=== PATIENT | male | born 1995 | race Caucasian/White ===

== ENCOUNTER 2022-11-05 08:26 | Emergency (ER) | payer OTHER ==
[~2022-11-05] VITALS: Ht 160 cm; Wt 113.4 kg
[2022-11-05] MEDS ORDERED: IBUPROFEN 600 MG TABLET ONE (08:45)
[2022-11-05] MEDS ORDERED: IBUPROFEN 400 MG TABLET PO ONE (09:00)
[2022-11-05 10:43] VITALS: BP 141/85; TEMP 99.1; O2SAT 98
== END 2022-11-05 10:43 ==
LOC: ER 08:30
DX: R07.89 Other chest pain (principal); F20.9 Schizophrenia, unspecified; Z88.1 Allergy status to other antibiotic agents
CPT/HCPCS: 71045-TC

== ENCOUNTER 2022-11-17 17:04 | Emergency (ER) | payer OTHER ==
[~2022-11-17] VITALS: Ht 170.2 cm; Wt 117.9 kg
[2022-11-17] MEDS ORDERED: IV NS 0.9% 1,000 ML IV ONE (19:00)
[2022-11-17 19:15] LABS: APPEARANCE,URINE CLEAR (CLEAR); BILIRUBIN,URINE NEGATIVE (NEGATIVE); BLOOD, URINE NEGATIVE Ery/uL (NEGATIVE); COLOR,URINE YELLOW (YELLOW); KETONES,URINE NEGATIVE (NEGATIVE); LEUKOCYTE ESTERASE ,URINE NEGATIVE (NEGATIVE); NITRITE, URINE NEGATIVE (NEGATIVE); PROTEIN,URINE NEGATIVE (NEGATIVE); UGLUCOSE NEGATIVE (NEGATIVE); UROBILINOGEN,URINE 0.2 EU/dL (0.2)
[2022-11-17 19:24] LABS: BASOPHILS # (AUTO) 0.4 K/uL (0.0-0.2); BASOPHILS % (AUTO) 3.2 % (0.0-2.0); EOSINOPHILS # (AUTO) 0.1 K/uL (0.0-0.7); EOSINOPHILS % (AUTO) 0.8 % (0.0-6.0); HEMATOCRIT 45 % (39-51); HEMOGLOBIN 14.6 g/dL (13.5-17.5); LYMPHOCYTES # (AUTO) 2.6 K/uL (0.8-4.8); LYMPHOCYTES % (AUTO) 22.3 % (20.0-44.0); MEAN CORPUSCULAR HEMOGLOBIN 27 PG (26.0-33.0); MEAN CORPUSCULAR HGB CONC 33 g/dl (31.0-36.0); MEAN CORPUSCULAR VOLUME 82 fL (80-96); MONOCYTES # (AUTO) 0.6 K/uL (0.1-1.30); MONOCYTES % (AUTO) 5.2 % (2.0-12.0); NEUTROPHILS # (AUTO) 8.1 K/uL (1.8-8.9); NEUTROPHILS % (AUTO) 68.5 % (43.0-81.0); PLATELET COUNT (AUTO) 262 K/uL (150-450); RED BLOOD CELL COUNT(AUTO) 5.46 MIL/uL (4.5-6.0); RED CELL DISTRIBUTION WIDTH 14.2 % (11.5-15.0); WHITE BLOOD COUNT (AUTO) 11.9 K/uL (4.3-11.0)
[2022-11-17 19:28] LABS: AMPHETAMINE, URINE NEGATIVE (NEGATIVE); BARBITURATE, URINE NEGATIVE (NEGATIVE); BENZODIAZEPINE, URINE NEGATIVE (NEGATIVE); CANNABINOID, URINE NEGATIVE (NEGATIVE); COCCAINE, URINE NEGATIVE (NEGATIVE); OPIATE, URINE NEGATIVE (NEGATIVE); PHENCYCLIDINE SCREEN,URINE NEGATIVE (NEGATIVE)
[2022-11-17 19:43] LABS: ALANINE AMINOTRANSFERASE 429 U/L (12-78); ALBUMIN 3.5 g/dL (3.4-5.0); ALCOHOL, BLOOD 260 mg/dL (0-10); ALKALINE PHOSPHATASE 101 U/L (46-116); ASPARTATE AMINOTRANSFERASE 238 U/L (15-37); BILIRUBIN,DIRECT 0.1 mg/dL (0.0-0.2); BILIRUBIN,TOTAL 0.2 mg/dL (0.2-1.0); CALCIUM, SERUM 8.3 mg/dL (8.5-10.1); CARBON DIOXIDE 23 mmol/L (21-32); CHLORIDE 105 mmol/L (98-107); GLUCOSE 111 mg/dL (74-106); POTASSIUM 3.8 mmol/L (3.5-5.1); SODIUM SERUM 142 mmol/L (136-145); TOTAL PROTEIN, SERUM 7.5 g/dL (6.4-8.2); UREA NITROGEN, BLOOD 12 mg/dL (7-18)
[2022-11-17 19:46] VITALS: BP 158/68; TEMP 98.4; O2SAT 100
[2022-11-17 19:58] LABS: ACETAMINOPHEN <10 ug/ml (10-30); SALICYLATE 0.7 mg/dL (2.8-20.0)
[2022-11-17 20:01] LABS: ANISOCYTOSIS 1+; LYMPHOCYTES % (MANUAL) 25 % (16-48); MONOCYTES % (MANUAL) 9 % (0-11.0); NEUTROPHILS % (MANUAL) 66 (42-76); PLATELET ESTIMATE ADEQUATE
== END 2022-11-17 19:47 | disposition left against medical advice (07) ==
LOC: ER 17:06
DX: F10.129 Alcohol abuse with intoxication, unspecified (principal); F20.9 Schizophrenia, unspecified; Z88.8 Allergy status to other drugs, medicaments and biological substances; Z60.2 Problems related to living alone; Y90.8 Blood alcohol level of 240 mg/100 ml or more
CPT/HCPCS: 99283; 96360; 85025; 80048; 80076; 85007; 81003; 36415; 80143; 80320; 80307; J7030; G0480

== ENCOUNTER 2022-11-17 23:16 | Emergency (ER) | payer OTHER ==
[~2022-11-17] VITALS: Ht 167.6 cm; Wt 117.6 kg
[2022-11-17 23:20] VITALS: TEMP 98.4
[2022-11-17 23:56] LABS: BASOPHILS # (AUTO) 0.1 K/uL (0.0-0.2); BASOPHILS % (AUTO) 0.7 % (0.0-2.0); EOSINOPHILS # (AUTO) 0.1 K/uL (0.0-0.7); EOSINOPHILS % (AUTO) 0.7 % (0.0-6.0); HEMATOCRIT 44 % (39-51); HEMOGLOBIN 14.5 g/dL (13.5-17.5); LYMPHOCYTES % (AUTO) 27.1 % (20.0-44.0); MEAN CORPUSCULAR HEMOGLOBIN 27 PG (26.0-33.0); MEAN CORPUSCULAR HGB CONC 33 g/dl (31.0-36.0); MEAN CORPUSCULAR VOLUME 82 fL (80-96); MONOCYTES # (AUTO) 0.6 K/uL (0.1-1.30); MONOCYTES % (AUTO) 5.6 % (2.0-12.0); NEUTROPHILS # (AUTO) 7.3 K/uL (1.8-8.9); NEUTROPHILS % (AUTO) 65.9 % (43.0-81.0); PLATELET COUNT (AUTO) 268 K/uL (150-450); RED CELL DISTRIBUTION WIDTH 13.8 % (11.5-15.0); WHITE BLOOD COUNT (AUTO) 11.1 K/uL (4.3-11.0)
[2022-11-18 00:12] LABS: ALBUMIN 3.5 g/dL (3.4-5.0); BILIRUBIN,DIRECT 0.1 mg/dL (0.0-0.2); BILIRUBIN,TOTAL 0.2 mg/dL (0.2-1.0); CALCIUM, SERUM 7.8 mg/dL (8.5-10.1); POTASSIUM 3.2 mmol/L (3.5-5.1); TOTAL PROTEIN, SERUM 7.4 g/dL (6.4-8.2)
[2022-11-18 00:42] LABS: AMPHETAMINE, URINE NEGATIVE (NEGATIVE); BARBITURATE, URINE NEGATIVE (NEGATIVE); BENZODIAZEPINE, URINE NEGATIVE (NEGATIVE); CANNABINOID, URINE NEGATIVE (NEGATIVE); COCCAINE, URINE NEGATIVE (NEGATIVE); OPIATE, URINE NEGATIVE (NEGATIVE); PHENCYCLIDINE SCREEN,URINE NEGATIVE (NEGATIVE)
[2022-11-18 00:44] LABS: ACETAMINOPHEN <10 ug/ml (10-30); SALICYLATE 0.6 mg/dL (2.8-20.0)
[2022-11-18 00:49] LABS: APPEARANCE,URINE CLEAR (CLEAR); COLOR,URINE YELLOW (YELLOW)
[2022-11-18 00:50] LABS: BILIRUBIN,URINE NEGATIVE (NEGATIVE); BLOOD, URINE NEGATIVE Ery/uL (NEGATIVE); KETONES,URINE NEGATIVE (NEGATIVE); LEUKOCYTE ESTERASE ,URINE NEGATIVE (NEGATIVE); NITRITE, URINE NEGATIVE (NEGATIVE); PROTEIN,URINE 1+ mg/dl (NEGATIVE); UGLUCOSE NEGATIVE (NEGATIVE); UROBILINOGEN,URINE 0.2 EU/dL (0.2)
[2022-11-18 06:35] VITALS: BP 117/69; O2SAT 98
== END 2022-11-18 06:35 | disposition home or self-care (01) ==
LOC: ER 23:16
DX: R45.851 Suicidal ideations (principal); F10.129 Alcohol abuse with intoxication, unspecified; F20.9 Schizophrenia, unspecified; Z88.8 Allergy status to other drugs, medicaments and biological substances; Z60.2 Problems related to living alone; Y90.8 Blood alcohol level of 240 mg/100 ml or more
CPT/HCPCS: 36415; 80048-TC; 80076-TC; 82962-TC; 85025-TC; G0480

== ENCOUNTER 2022-11-18 11:19 | Emergency (ER) | payer OTHER ==
[~2022-11-18] VITALS: Ht 167.6 cm; Wt 113.4 kg
[2022-11-18 11:42] VITALS: TEMP 97.5
[2022-11-18 21:41] VITALS: BP 119/82; O2SAT 98
== END 2022-11-18 21:42 | disposition home or self-care (01) ==
LOC: ER 11:23
DX: F10.129 Alcohol abuse with intoxication, unspecified (principal); F20.9 Schizophrenia, unspecified; Z88.8 Allergy status to other drugs, medicaments and biological substances; Z60.2 Problems related to living alone; Y90.9 Presence of alcohol in blood, level not specified

== ENCOUNTER 2022-11-18 21:49 | Emergency (ER) | payer OTHER ==
[~2022-11-18] VITALS: Ht 167.6 cm; Wt 113.4 kg
[2022-11-19 06:32] VITALS: BP 144/80; TEMP 98.1; O2SAT 98
[2022-11-20] MEDS ORDERED: ZIPR60CA2 PO (13:32)
[2022-11-20] MEDS ORDERED: BENZ1TAB7 PO (13:32)
[2022-11-20] MEDS ORDERED: LORA-259 PO (13:32)
== END 2022-11-19 06:33 | disposition home or self-care (01) ==
LOC: ER 21:51
DX: F10.229 Alcohol dependence with intoxication, unspecified (principal); F20.9 Schizophrenia, unspecified; Z88.8 Allergy status to other drugs, medicaments and biological substances; Z60.2 Problems related to living alone; Y90.9 Presence of alcohol in blood, level not specified
CPT/HCPCS: 36415; 82962-TC; G0480

== ENCOUNTER 2022-11-19 09:02 | Emergency (ER) | payer OTHER ==
[~2022-11-19] VITALS: Ht 160 cm; Wt 100.2 kg
[2022-11-19 12:10] VITALS: BP 148/86; TEMP 98.2; O2SAT 96
[2022-11-20] MEDS ORDERED: BENZ1TAB7 PO (13:32)
[2022-11-20] MEDS ORDERED: LORA-259 PO (13:32)
[2022-11-20] MEDS ORDERED: ZIPR60CA2 PO (13:32)
== END 2022-11-19 12:10 | disposition home or self-care (01) ==
LOC: ER 09:04
DX: F10.129 Alcohol abuse with intoxication, unspecified (principal); F20.9 Schizophrenia, unspecified; Z88.8 Allergy status to other drugs, medicaments and biological substances; Z60.2 Problems related to living alone; Y90.9 Presence of alcohol in blood, level not specified
CPT/HCPCS: 82962-TC

== ENCOUNTER 2022-11-20 12:54 | Inpatient (IN) | payer OTHER ==
[~2022-11-20] VITALS: Ht 160 cm; Wt 116.6 kg
[2022-11-20] MEDS ORDERED: LORAZEPAM INJ 2 MG/ML VIAL ONE (13:28)
[2022-11-20] MEDS ORDERED: LORAZEPAM INJ 2 MG/ML VIAL IV ONE ×2 (13:30→20:00)
[2022-11-20 13:31] LABS: BASOPHILS # (AUTO) 0.1 K/uL (0.0-0.2); HEMATOCRIT 41 % (39-51); HEMOGLOBIN 13.5 g/dL (13.5-17.5); LYMPHOCYTES # (AUTO) 1.3 K/uL (0.8-4.8); LYMPHOCYTES % (AUTO) 12.2 % (20.0-44.0); MEAN CORPUSCULAR HEMOGLOBIN 27 PG (26.0-33.0); MEAN CORPUSCULAR HGB CONC 33 g/dl (31.0-36.0); MEAN CORPUSCULAR VOLUME 81 fL (80-96); MONOCYTES # (AUTO) 0.7 K/uL (0.1-1.30); MONOCYTES % (AUTO) 6.1 % (2.0-12.0); NEUTROPHILS # (AUTO) 8.6 K/uL (1.8-8.9); NEUTROPHILS % (AUTO) 80.7 % (43.0-81.0); PLATELET COUNT (AUTO) 244 K/uL (150-450); RED BLOOD CELL COUNT(AUTO) 5.01 MIL/uL (4.5-6.0); RED CELL DISTRIBUTION WIDTH 13.7 % (11.5-15.0); WHITE BLOOD COUNT (AUTO) 10.7 K/uL (4.3-11.0)
[2022-11-20] MEDS ORDERED: ZIPR60CA2 PO (13:32)
[2022-11-20] MEDS ORDERED: BENZ1TAB7 PO (13:32)
[2022-11-20] MEDS ORDERED: LORA-259 PO (13:32)
[2022-11-20 13:44] LABS: CALCIUM, SERUM 8.9 mg/dL (8.5-10.1); CARBON DIOXIDE 26 mmol/L (21-32); CHLORIDE 95 mmol/L (98-107); GLUCOSE 120 mg/dL (74-106); POTASSIUM 3.4 mmol/L (3.5-5.1); SODIUM SERUM 131 mmol/L (136-145); UREA NITROGEN, BLOOD 9 mg/dL (7-18)
[2022-11-20 13:50] LABS: ACETAMINOPHEN <10 ug/ml (10-30); ALANINE AMINOTRANSFERASE 260 U/L (12-78); ALBUMIN 3.7 g/dL (3.4-5.0); ALCOHOL, BLOOD < 3 mg/dL (0-10); ALKALINE PHOSPHATASE 95 U/L (46-116); ASPARTATE AMINOTRANSFERASE 90 U/L (15-37); BILIRUBIN,DIRECT 0.2 mg/dL (0.0-0.2); BILIRUBIN,TOTAL 0.6 mg/dL (0.2-1.0); SALICYLATE < 0.2 mg/dL (2.8-20.0); TOTAL PROTEIN, SERUM 7.7 g/dL (6.4-8.2)
[2022-11-20 14:20] VITALS: O2SAT 97
[2022-11-20 19:42] LABS: APPEARANCE,URINE CLEAR (CLEAR); BILIRUBIN,URINE NEGATIVE (NEGATIVE); BLOOD, URINE TRACE-INTA Ery/uL (NEGATIVE); COLOR,URINE YELLOW (YELLOW); KETONES,URINE NEGATIVE (NEGATIVE); LEUKOCYTE ESTERASE ,URINE NEGATIVE (NEGATIVE); NITRITE, URINE NEGATIVE (NEGATIVE); PROTEIN,URINE NEGATIVE (NEGATIVE); UGLUCOSE NEGATIVE (NEGATIVE); UROBILINOGEN,URINE 0.2 EU/dL (0.2)
[2022-11-20 19:50] LABS: AMPHETAMINE, URINE NEGATIVE (NEGATIVE); BARBITURATE, URINE NEGATIVE (NEGATIVE); BENZODIAZEPINE, URINE NEGATIVE (NEGATIVE); CANNABINOID, URINE NEGATIVE (NEGATIVE); COCCAINE, URINE NEGATIVE (NEGATIVE); OPIATE, URINE NEGATIVE (NEGATIVE); PHENCYCLIDINE SCREEN,URINE NEGATIVE (NEGATIVE)
[2022-11-20 20:13] LABS: ADD URINE CULTURE NO; BACTERIA,URINE Rare /HPF (None Seen); SQUAMOUS EPITHELIAL CELL,UR None Seen /HPF (None Seen); WBC,URINE 0-2 /HPF (0-3)
[2022-11-20] MEDS ORDERED: MAGNESIUM HYDROXIDE 30 ML UDC PO PRN (20:30)
[2022-11-20] MEDS ORDERED: ACETAMINOPHEN 325 MG TABLET PO PRN (20:30)
[2022-11-20] MEDS ORDERED: ONDANSETRON HCL/PF 4 MG/2 ML VIAL IVP PRN (20:30)
[2022-11-20] MEDS ORDERED: LORAZEPAM INJ 2 MG/ML VIAL IV PRN (20:30)
[2022-11-20] MEDS ORDERED: IV NS 0.9% 1,000 ML IV PRN (20:30)
[2022-11-20] MEDS ORDERED: MAG HYDROX/AL HYDROX/SIMETH 30 ML UDC PO PRN (20:30)
[2022-11-20] MEDS ORDERED: Z GUARD REMEDY 4 OZ OINT TP PRN (20:30)
[2022-11-20] MEDS ORDERED: HOME MED MISCELLANEOUS XX SCH (21:00)
[2022-11-20] MEDS ORDERED: POTASSIUM CHLORIDE 20 MEQ TAB.PRT.SR PO ONE ×2 (21:00→23:25)
[2022-11-20] MEDS: BENZTROPINE MESYLATE (1 MG) 1 MG TABLET PO SCH (23:19)
[2022-11-21 06:10] LABS: BASOPHILS # (AUTO) 0.1 K/uL (0.0-0.2); BASOPHILS % (AUTO) 1.1 % (0.0-2.0); EOSINOPHILS % (AUTO) 0.6 % (0.0-6.0); HEMATOCRIT 42 % (39-51); HEMOGLOBIN 13.7 g/dL (13.5-17.5); LYMPHOCYTES # (AUTO) 2.2 K/uL (0.8-4.8); LYMPHOCYTES % (AUTO) 25.7 % (20.0-44.0); MEAN CORPUSCULAR HEMOGLOBIN 27 PG (26.0-33.0); MEAN CORPUSCULAR HGB CONC 33 g/dl (31.0-36.0); MEAN CORPUSCULAR VOLUME 82 fL (80-96); MONOCYTES # (AUTO) 0.7 K/uL (0.1-1.30); NEUTROPHILS # (AUTO) 5.6 K/uL (1.8-8.9); NEUTROPHILS % (AUTO) 64.6 % (43.0-81.0); PLATELET COUNT (AUTO) 208 K/uL (150-450); RED BLOOD CELL COUNT(AUTO) 5.04 MIL/uL (4.5-6.0); WHITE BLOOD COUNT (AUTO) 8.6 K/uL (4.3-11.0)
[2022-11-21 06:26] LABS: CALCIUM, SERUM 8.5 mg/dL (8.5-10.1); PHOSPHORUS 3.5 mg/dL (2.5-4.9); POTASSIUM 3.4 mmol/L (3.5-5.1)
[2022-11-21 07:30] VITALS: BP 150/89; TEMP 98.4; O2SAT 99
[2022-11-21] MEDS ORDERED: PANTOPRAZOLE 40 MG TABLET.DR PO SCH (07:30)
[2022-11-21] MEDS: BENZTROPINE MESYLATE (1 MG) 1 MG TABLET PO SCH (08:10)
[2022-11-21] MEDS ORDERED: THIAMINE HCL 100 MG TABLET PO SCH (09:00)
[2022-11-21] MEDS ORDERED: ZIPRASIDONE 20 MG CAPSULE PO SCH ×2 (09:00)
[2022-11-21] MEDS ORDERED: BENZTROPINE MESYLATE (1 MG) 1 MG TABLET PO SCH ×2 (09:00)
[2022-11-21] MEDS ORDERED: POTASSIUM CHLORIDE 20 MEQ TAB.PRT.SR PO SCH (10:00)
[2022-11-21] MEDS ORDERED: LORAZEPAM 0.5 MG TABLET PO ONE (10:30)
== END 2022-11-21 11:45 | disposition home or self-care (01) | DRG 775 ==
LOC: ER 12:54 → TELE 20:49 → MED 21:35
PROVIDERS: ADMIT Nurse Practitioner Acute Care; ATTEND Nurse Practitioner Family
DX: F10.239 Alcohol dependence with withdrawal, unspecified (principal); E87.1 Hypo-osmolality and hyponatremia; E66.01 Morbid (severe) obesity due to excess calories; E87.6 Hypokalemia; Z68.42 Body mass index [BMI] 45.0-49.9, adult; E86.1 Hypovolemia; R74.01 Elevation of levels of liver transaminase levels; F20.9 Schizophrenia, unspecified; Y90.0 Blood alcohol level of less than 20 mg/100 ml
CPT/HCPCS: 36415; 80048-TC; 80076-TC; 81001; 83735-TC; 84100-TC; 85025-TC; A4223; G0378; G0480; J2060; J7030

== ENCOUNTER 2022-12-16 15:05 | Emergency (ER) | payer OTHER ==
[~2022-12-16] VITALS: Ht 160 cm; Wt 117.9 kg
[~2022-12-16 15:05] MED LIST: BENZ1TAB7 PO; LORA-259 PO; ZIPR60CA2 PO
[2022-12-16 17:58] VITALS: BP 126/76; TEMP 97.9; O2SAT 97
== END 2022-12-16 17:59 | disposition home or self-care (01) ==
LOC: ER 15:24
DX: F10.129 Alcohol abuse with intoxication, unspecified (principal); Z79.899 Other long term (current) drug therapy; Z88.1 Allergy status to other antibiotic agents; Z88.5 Allergy status to narcotic agent; Y90.9 Presence of alcohol in blood, level not specified

== ENCOUNTER 2022-12-16 20:07 | Emergency (ER) | payer OTHER ==
[~2022-12-16] VITALS: Ht 160 cm; Wt 72.6 kg
[2022-12-16 23:47] VITALS: BP 136/82; TEMP 98.1; O2SAT 96
== END 2022-12-16 23:47 | disposition home or self-care (01) ==
LOC: ER 20:08
DX: F10.129 Alcohol abuse with intoxication, unspecified (principal); Z88.8 Allergy status to other drugs, medicaments and biological substances; Y90.9 Presence of alcohol in blood, level not specified
CPT/HCPCS: 82962-TC